=== PATIENT | male | born 1945 | race African-American/Black ===

== ENCOUNTER 2017-09-08 02:05 | Inpatient (IN) | payer MEDICARE, BC ==
[~2017-09-08] VITALS: Ht 177.8 cm; Wt 77.1 kg
[2017-09-08 03:20] LABS: BASOPHILS % 0.3 % (0.0-1.0); HEMATOCRIT 39.8 % (38.2-49.6); HEMOGLOBIN 13.7 g/dL (14.0-18.0); LYMPHOCYTES # (AUTO) 1.7 (1.0-3.2); LYMPHOCYTES % 14.1 % (18.0-39.1); MEAN CORPUSCULAR HEMOGLOBIN 32.3 pg (28-32); MEAN CORPUSCULAR HGB CONC 34.4 g/dL (31-35); MEAN CORPUSCULAR VOLUME 93.9 fL (81-99); MONOCYTES # (AUTO) 1.4 (0.2-0.8); MONOCYTES % 12.1 % (4.4-11.3); NEUTROPHILS # (AUTO) 8.6 (2.1-6.9); NEUTROPHILS % 73.1 % (38.7-80.0); PLATELET COUNT 210 x10e3/uL (140-360); RED BLOOD COUNT 4.24 x10e6/uL (4.3-5.7); RED CELL DISTRIBUTION WIDTH 14.3 % (11.7-14.4)
[2017-09-08 03:21] LABS: CLARITY,URINE CLEAR (CLEAR); COLOR,URINE YELLOW (YELLOW)
[2017-09-08 03:22] LABS: BILIRUBIN,URINE NEGATIVE (NEGATIVE); KETONES,URINE TRACE (NEGATIVE); LEUKOCYTE ESTERASE ,URINE 1+ (NEGATIVE); NITRITE,URINE NEGATIVE (NEGATIVE); PROTEIN,URINE DIPSTICK TRACE (NEGATIVE); URINE UROBILINOGEN 4 mg/dL (0.2 - 1)
[2017-09-08 03:23] LABS: BACTERIA,URINE FEW /HPF; EPITHELIAL CELLS,URINE RARE /LPF; RBC,URINE 0-5 /HPF (0-5)
[2017-09-08 03:26] LABS: INR 1.36; PROTHROMBIN TIME 15.8 seconds (11.9-14.5)
[2017-09-08 04:08] LABS: ALANINE AMINOTRANSFERASE 28 IU/L (0-55); ALBUMIN 3.3 g/dL (3.5-5.0); ALBUMIN/GLOBULIN RATIO 0.9 (0.8-2.0); ALKALINE PHOSPHATASE 102 IU/L (40-150); AMYLASE 95 U/L (25-125); ANION GAP 13.1 mmol/L (8-16); BLOOD UREA NITROGEN 9 mg/dL (7-26); BUN/CREATININE RATIO 9 (6-25); CALCIUM 8.8 mg/dL (8.4-10.2); CARBON DIOXIDE 22 mmol/L (22-29); CHLORIDE 103 mmol/L (98-107); CREATININE, SERUM 1.04 mg/dL (0.72-1.25); EST GLOMERULAR FILTRATION RATE > 60 ML/MIN (60-); GLUCOSE 118 mg/dL (74-118); LIPASE 16 U/L (8-78); POTASSIUM 4.1 mmol/L (3.5-5.1); SODIUM 134 mmol/L (136-145)
[2017-09-08] MEDS ORDERED: IOPAMIDOL 370 MG/ML 200 ML INFUS..BTL INJ ONE (04:20)
[2017-09-08] MEDS ORDERED: SODIUM CHLORIDE 0.9% 50ML 50 ML ONE (04:20)
[2017-09-08] MEDS ORDERED: ONDANSETRON HCL INJ 2 MG/ML VIAL IV STA (05:18)
[2017-09-08] MEDS ORDERED: PIPER-TAZ 3.375 GM 50 ML IV STA (05:18)
[2017-09-08] MEDS ORDERED: MORPHINE SULFATE 2 MG/ML SYR IV STA (05:18)
--- NOTE | 2017-09-08 05:22 | Diagnostic Imaging Report ---
EXAM: CT ABDOMEN/PELVIS W DATE: 09/08/2017 2:16 AM INDICATION: Right lower quadrant pain COMPARISON: None TECHNIQUE: The abdomen and pelvis were scanned using a multidetector helical scanner. Coronal and sagittal reformations were obtained. Routine protocol performed. IV Contrast: 100 ml Isovue 300/370 FINDINGS: LOWER THORAX: Cardiomegaly. No consolidation. LIVER/BILIARY: Slightly heterogeneous, which may be related to phase of enhancement and passive hepatic congestion. GALLBLADDER: Unremarkable SPLEEN: Unremarkable PANCREAS: Unremarkable ADRENALS: No nodules KIDNEYS: 4.1 cm left renal cyst and several too small to characterize bilateral renal hypodensities. No hydronephrosis. GI TRACT: Dilated appendix measuring up to 1.9 cm with mucosal hyperemia and surrounding inflammatory changes. Moderate focal thickening of the cecum/cecal base, which appears low density, likely reactive edema. VESSELS: Unremarkable PERITONEUM/RETROPERITONEUM: Mild perihepatic and right paracolic gutter free fluid. LYMPH NODES: No lymphadenopathy REPRODUCTIVE ORGANS/BLADDER: Unremarkable SOFT TISSUES: Unremarkable BONES: Multilevel degenerative changes IMPRESSION: Acute appendicitis without evidence of rupture. Moderate associated cecal edema. Discussed with Physician: KALEY GLEZ MD at 5:15 AM on 09/08/2017. Signed by: Dr Jessica Valdivia MD on 09/08/2017 5:18 AM
[2017-09-08] MEDS ORDERED: CARVEDILOL3.125 MG PO (05:42)
[2017-09-08] MEDS ORDERED: LASIX20 MG PO (05:42)
[2017-09-08] MEDS ORDERED: AMIODARONE HCL200 MG PO (05:42)
[2017-09-08] MEDS ORDERED: PRILOSEC OTC20 MG PO (05:42)
[2017-09-08] MEDS ORDERED: ELIQUIS PO (05:42)
[2017-09-08] MEDS ORDERED: LISINOPRIL2.5 MG PO (05:42)
[2017-09-08] MEDS ORDERED: METOPROLOL TARTRATE INJ 1 MG/ML VIAL IV PRN (05:45)
[2017-09-08] MEDS ORDERED: PIPER-TAZ 3.375 GM / NS 50ML IV SCH (06:00)
[2017-09-08 08:14] VITALS: BP 96/62
[2017-09-08] MEDS: CARVEDILOL 3.125 MG TAB PO SCH ×2 (09:00→17:00)
--- NOTE | 2017-09-08 09:17 | History and Physical ---
Patient of Dr. Sathya St. A charming but unfortunate 72-year-old gentleman admitted with 2 days of intermittent abdominal pain, but more severe and constant starting yesterday. History of hypertension, history of paroxysmal atrial fibrillation, history of degenerative joint disease. He has had cervical spine fusion. FAMILY HISTORY: Positive for longevity. Nonsmoker. Born in [facility]. 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 MEDICATIONS: Included amiodarone, Coreg, Lasix, lisinopril, Prilosec, and Eliquis. He was planning to see Dr. Mcdonnell because of his edema. Denies respiratory problems. Denies problems. Denies depression. History of atrial fibrillation for 3 months and hypertension. Right lower quadrant pain, peripheral edema. He has been off his Eliquis for 24 hours. PHYSICAL EXAMINATION GENERAL: He is a well-developed, thin black male in no acute distress. Looking his stated age. VITALS: Temperature 98.1, pulse 81, blood pressure 96/60. HEENT: Head is normocephalic and atraumatic. Scar in neck. LUNGS: Clear. HEART: Regular rhythm. ABDOMEN: Tender in the right lower quadrant. EXTREMITIES: Edematous. IMPRESSION 1. Congestive heart failure. 2. Paroxysmal atrial fibrillation. 3. Appendicitis. 4. Hypertension. 5. Degenerative joint disease. PLAN: Cardiology clearance. Surgical intervention. The patient seems a reasonable surgical candidate. Thank you for this kind referral. Job#: [id number] HOLLI
--- NOTE | 2017-09-08 10:36 | History and Physical ---
ADDENDUM TO HISTORY AND PHYSICAL The patient does have a history of diastolic congestive heart failure, paroxysmal atrial fibrillation and atrial flutter. He was cardioverted in April of this year. He has a history of chronic kidney disease. He has had progressive heart failure. In March, his left ventricular ejection fraction was 40%. He was felt to have chronic hypertensive cardiomyopathy and biatrial enlargement. He was cardioverted. He has a history of amaurosis fugax, history of hypertension, and gastroesophageal reflux according to old record. Ejection fraction in 2016 was apparently 65%. Job#: [id number]
[2017-09-08] MEDS: SODIUM CHLORIDE 0.9% 1000ML 1,000 ML IV SCH ×3 (10:38→21:29)
[2017-09-08] MEDS: AMIODARONE HCL 200 MG TAB PO SCH (10:38)
--- NOTE | 2017-09-08 10:53 | Consultation ---
DATE OF CONSULTATION: September 08, 2017 REASON FOR CONSULTATION: History of A-flutter. HPI: This is a 72-year-old male with a history of atrial fibrillation, status post cardioversion in April [address] Patel, hypertension, cervical stenosis, status post cervical surgery, lumbar stenosis, and reflux. Patient presents with a 3-day history of abdominal discomfort, right lower quadrant that started about Thursday. Reports some nausea. No vomitus. Did try home remedies, teas, and whatnot. However, on Thursday morning the pain again increased in severity after seeing his doctor in which he came PMC for further evaluation. On imaging, the patient was noted with acute appendicitis. General surgery has been consulted. Of note, last dosage of Eliquis was Thursday. The patient denies any chest pain, shortness of breath, any orthopnea, PND. Does have some lower extremity edema, greater on the right than left. EKG was done showing the patient in sinus rhythm. PAST MEDICAL HISTORY: Hypertension, A-flutter, status post cardioversion in April [address] Patel, cervical and lumbar stenosis, LV dysfunction, reflux. SURGICAL HISTORY: Neck surgery and also he had a FRANCIS in April [address] Patel. Was cardioverted. FAMILY HISTORY: Mother at age 97 apparently from old age. Father at age 77, questionable heart failure. SOCIAL HISTORY: He is . 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 Denies any tobacco use. Occasional alcohol use reported. HOME MEDICATIONS 1. Eliquis 5 mg twice a day. 2. Coreg 3.125 mg twice a day. 3. Amiodarone 200 mg twice a day. 4. Lasix 20 mg once a day. 5. Lisinopril 2.5 mg once a day. 6. Omeprazole 20 mg twice a day. ALLERGIES: NO KNOWN ALLERGIES. REVIEW OF SYSTEMS GENERAL: Denies any weight gain or weight changes, any fevers, chills, night sweats. SKIN: Moist. No rashes or bruises. HEENT: Positive for nausea. One episode of vomiting this morning. Does wear corrective lenses. Denies any tinnitus, vertigo. Positive for hearing loss. Denies any earaches. Denies any stuffiness, sneezing, allergies, epistaxis, sore throat. Positive for stiff neck. No neck pain. CARDIAC: Denies any chest pain, any palpitations. Positive for dyspnea on exertion. Denies any orthopnea, PND. Does have some lower extremity edema, right greater than left, which he says is chronic. RESPIRATORY: Positive for shortness of breath on exertion. Denies any coughing or wheezing, any hemoptysis. GI: Good appetite. Positive for nausea. One episode of vomitus this morning. Denies any diarrhea or constipation, melena, hematochezia. Positive for abdominal pain, right lower quadrant. URINARY: Denies any hematuria. Positive for nocturia, frequency and urgency. VASCULAR: Positive for lower extremity edema, right greater than left, which he states is chronic. MUSCULOSKELETAL: Positive for generalized joint pains and lower back pains. NEUROLOGICAL: Positive for lower extremity numbness. The patient with known lumbar stenosis. He is seeing a spinal specialist. Denies any paralysis, fainting, blackouts, seizures. HEMATOLOGY: Denies any anemia, any bleeding, any easy bruising. ENDOCRINE: Denies any heat or cold intolerance, any polyuria, polydipsia, polyphagia. PHYSICAL EXAMINATION VITAL SIGNS: Height 70 inches, weight 170 pounds, temperature 98.8, pulse 89, respiratory rate 18, blood pressure 123/80, pulse ox 99% on room air. GENERAL: Appears stated age. A reliable informant. No acute distress. SKIN: Dry. No rashes. No bruises noted. HEENT: Normocephalic. Pupils equal and reactive. Extraocular motor intact. Trachea midline. oral mucosa is pink. No JVD. No thyromegaly noted. No carotid bruits noted. HEART: Regular rate and rhythm. Soft systolic murmur heard on the right upper sternal border. PMI is in the 5th intercostal space. LUNGS: Bilateral breath sounds. Clear to auscultation. ABDOMEN: Soft and tender in the right lower quadrant to palpation. No guarding. MUSCULOSKELETAL: Good muscle strength throughout. There is some right lower swelling. VASCULAR: Plus 2 with bilateral radial pulses, +1 DP and PT pulses bilaterally. NEUROLOGICAL: Cranial nerves II-XII seem intact. LABS: White count 11.8, hemoglobin 13, hematocrit 39, and platelets 210,000. Chemistry: Sodium 134, potassium 4.1, chloride 103, BUN 9, creatinine 1.04, HCO2 32, ALT 28, alkaline phos 102, lipase 116, amylase 95. CT of the abdomen is showing acute appendicitis without evidence of rupture. Moderate associated cecal edema. EKG is showing normal sinus rhythm. No acute S/T changes suggestive of an acute event. Of note, the patient had an echo done on August 02, 2017, at [facility] read by Dr. Patel. EF reported at 40% to 45% and severe LVH. ASSESSMENT AND PLAN 1. Acute appendicitis. 2. Hypertension. 3. Left ventricular dysfunction. 4. Paroxysmal atrial flutter: Status post cardioversion and currently in sinus rhythm. 5. Reflux. PLAN: Patient presents with right lower quadrant abdominal pain noted with acute appendicitis on CT. General surgery has been consulted. The patient has been off Eliquis therapy since yesterday morning around 8 in the morning. Currently, the patient is in sinus rhythm on telemetry. Continue telemetry for now. Continue beta bryan for rate control. The patient is taking amiodarone and continue amiodarone for rhythm control. Echo has been ordered by primary team. Will be read by cardiology attending. The patient is cleared for appendectomy if recommended by general surgery. However, risks are not zero from a cardiac standpoint. Thank you very much for this consult. Will continue to monitor the patient and adjust cardiac therapy as the course dictates. DICTATED BY RYAN WILDER NP SEEN AND EXAMINED AGREE WITH NOTE Job#: [id number] HOLLI BALDWIN
[2017-09-08 10:56] VITALS: BP 96/62
--- NOTE | 2017-09-08 11:48 | Diagnostic Imaging Report ---
PROCEDURE: Frontal and lateral views of the chest. COMPARISON: [facility], CT, CT ABDOMEN/PELVIS W, 09/08/2017, 4:19. INDICATIONS: RIGHT SIDE LOWER ABDOMEN PAIN FINDINGS: Lines/tubes: None. Lungs: The lungs are well inflated. There is no evidence of pneumonia or pulmonary edema. Pleura: There is no pleural effusion or pneumothorax. Heart and mediastinum: Stable moderate cardiomegaly. Central vascular congestion and mild perihilar interstitial edema Bones: No acute bony abnormality. IMPRESSION: 1. Stable moderate cardiomegaly. Central vascular congestion and mild perihilar interstitial edema Mariano Min M.D. Dictated by: Mariano Min M.D. on 09/08/2017 at 11:51 Electronically approved by: Mariano Min M.D. on 09/08/2017 at 11:51
[2017-09-08 12:58] VITALS: BP 108/69
--- NOTE | 2017-09-08 13:30 | Consultation ---
DATE OF CONSULTATION: September 08, 2017 SURGERY CONSULTATION REFERRING PHYSICIAN: Dr. Patiño, Dr. Red Rogers. HISTORY OF PRESENT ILLNESS: The patient is a 72-year-old male admitted to the hospital with complaints of abdominal pain. He said he had intermittent right lower quadrant abdominal pain a few days ago but it became constant yesterday. He came to the emergency room where evaluation has revealed findings suggestive of acute appendicitis. Patient is on Eliquis. However, he last took the Eliquis yesterday. He denies nausea or vomiting. PAST MEDICAL HISTORY: Significant for cardiomyopathy, congestive heart failure, hypertension. MEDICATIONS: At home were amiodarone, carvedilol, Lasix, lisinopril, omeprazole and Eliquis. ALLERGIES: HE HAS NO KNOWN ALLERGIES. PAST SURGICAL HISTORY: He has had a previous neck surgery. FAMILY HISTORY: Noncontributory. SOCIAL HISTORY: The patient does not smoke cigarettes or drink alcohol. REVIEW OF SYSTEMS: Is as stated above, otherwise was negative. PHYSICAL EXAMINATION: GENERAL: The patient is awake and alert. VITAL SIGNS: Normal. He is afebrile. HEENT: Reveals no scleral icterus. NECK: Has no masses. LUNGS: Equal breath sounds are clear bilaterally. CARDIAC: Regular rhythm. ABDOMEN: Tender in the right lower quadrant. Signs of peritonitis localized to the right lower quadrant. There is no mass. EXTREMITIES: Have no edema. LABORATORY DATA: White blood cell count 11.81. Hemoglobin 13. Hematocrit 39.8. Chemistries are essentially normal. ASSESSMENT: A 72-year-old male with acute appendicitis and also multiple associated medical problems, particularly congestive heart failure, and is on Eliquis. Plan to hold the Eliquis today, tentatively plan surgery for tomorrow. The procedure was explained to the patient. He is to be seen in consultation by Cardiology. Thank you for asking me to see Mr. Barroso. Job#: [id number] EV
[2017-09-08] MEDS: PIPER-TAZ 3.375 GM 50 ML IV SCH ×2 (13:55→21:29)
[2017-09-08] MEDS ORDERED: DEXAMETHASONE SOD PHOS INJ 4 MG/ML VIAL ONE (14:06)
[2017-09-08] MEDS ORDERED: LIDOCAINE HCL 2% LOCAL INJ 5 ML SDV VIAL INJ ONE (14:06)
[2017-09-08] MEDS ORDERED: PROPOFOL IV EMULSION 10 MG/ML 20 ML VIAL ONE (14:06)
[2017-09-08] MEDS ORDERED: SEVOFLURANE INHAL SOLN 250 ML PEN BTL ONE (14:06)
[2017-09-08] MEDS ORDERED: ONDANSETRON HCL INJ 2 MG/ML VIAL ONE (14:06)
[2017-09-08] MEDS ORDERED: NEOSTIGMINE 5 MG/5ML SYR ONE (14:06)
[2017-09-08] MEDS ORDERED: ROCURONIUM BROMIDE 10 MG/ML 5ML VIAL ONE (14:06)
[2017-09-08] MEDS ORDERED: GLYCOPYRROLATE INJ 1MG/ 5 ML SYR ONE (14:06)
[2017-09-08 16:40] VITALS: BP 93/62
[2017-09-08] MEDS: MORPHINE SULFATE 2 MG/ML SYR IV PRN (18:10)
[2017-09-08] MEDS: ONDANSETRON HCL INJ 2 MG/ML VIAL IV PRN (18:10)
[2017-09-08] MEDS ORDERED: SIMETHICONE 80 MG CHEW PO PRN (20:00)
[2017-09-08 20:07] VITALS: BP 149/92
[2017-09-08 21:00] VITALS: BP 149/92
[2017-09-09] VITALS (9 sets, daily range): BP systolic 95–118; BP diastolic 62–78
[2017-09-09] MEDS: ONDANSETRON HCL INJ 2 MG/ML VIAL IV PRN (00:31)
[2017-09-09] MEDS: MORPHINE SULFATE 2 MG/ML SYR IV PRN (00:31)
[2017-09-09] MEDS: PIPER-TAZ 3.375 GM 50 ML IV SCH ×3 (05:50→20:55)
[2017-09-09] MEDS: SODIUM CHLORIDE 0.9% 1000ML 1,000 ML IV SCH ×3 (06:13→17:05)
[2017-09-09] MEDS ORDERED: BUPIVACAINE HCL 0.5% INJ 30 ML VIAL INJ ONE (06:14)
[2017-09-09 06:45] LABS: BASOPHILS % 0.2 % (0.0-1.0); HEMOGLOBIN 13.7 g/dL (14.0-18.0); LYMPHOCYTES # (AUTO) 2.1 (1.0-3.2); LYMPHOCYTES % 16.4 % (18.0-39.1); MEAN CORPUSCULAR HEMOGLOBIN 31.8 pg (28-32); MEAN CORPUSCULAR HGB CONC 34.3 g/dL (31-35); MEAN CORPUSCULAR VOLUME 92.8 fL (81-99); MONOCYTES # (AUTO) 0.8 (0.2-0.8); PLATELET COUNT 208 x10e3/uL (140-360); RED BLOOD COUNT 4.31 x10e6/uL (4.3-5.7); RED CELL DISTRIBUTION WIDTH 13.6 % (11.7-14.4)
[2017-09-09 07:00] LABS: INR 1.53; PROTHROMBIN TIME 17.3 seconds (11.9-14.5)
[2017-09-09 07:01] LABS: PARTIAL THROMBOPLASTIN TIME 32.1 seconds (23.8-35.5)
[2017-09-09 07:24] LABS: ALANINE AMINOTRANSFERASE 25 IU/L (0-55); ALBUMIN 3.3 g/dL (3.5-5.0); ALBUMIN/GLOBULIN RATIO 0.8 (0.8-2.0); ALKALINE PHOSPHATASE 87 IU/L (40-150); BLOOD UREA NITROGEN 10 mg/dL (7-26); BUN/CREATININE RATIO 8 (6-25); CALCIUM 9.1 mg/dL (8.4-10.2); CARBON DIOXIDE 23 mmol/L (22-29); CHLORIDE 105 mmol/L (98-107); CREATININE, SERUM 1.19 mg/dL (0.72-1.25); EST GLOMERULAR FILTRATION RATE > 60 ML/MIN (60-); GLUCOSE 92 mg/dL (74-118); SODIUM 139 mmol/L (136-145)
[2017-09-09 07:34] LABS: CHOL/HDL RATIO 2.3 (3.9-4.7)
[2017-09-09] MEDS ORDERED: MORPHINE SULFATE INJ 4 MG/ML INJ IV PRN (07:45)
[2017-09-09] MEDS ORDERED: HYDROCODONE/APAP 5MG-325MG TAB PO PRN (07:45)
[2017-09-09] MEDS ORDERED: ONDANSETRON HCL INJ 2 MG/ML VIAL IV PRN (07:45)
[2017-09-09] MEDS ORDERED: MORPHINE SULFATE 2 MG/ML SYR IV PRN (08:00)
[2017-09-09 08:23] LABS: BAND NEUTROPHILS % (MANUAL) 4 %; LYMPHOCYTES % (MANUAL) 11 % (19-48); MONOCYTES % (MANUAL) 6 % (3.4-9.0); NEUTROPHILS % (MANUAL) 79 % (40-74)
[2017-09-09 08:24] LABS: ANISOCYTOSIS SLIGHT; PLATELET ESTIMATE ADEQUATE; PLATELET MORPHOLOGY COMMENT NORMAL; RBC MORPHOLOGY COMMENT NORMAL
--- NOTE | 2017-09-09 08:25 | Operative Report ---
DATE OF PROCEDURE: September 09, 2017 PREOPERATIVE DIAGNOSIS: Acute appendicitis. POSTOPERATIVE DIAGNOSIS: Acute appendicitis. PROCEDURES PERFORMED: Diagnostic laparoscopy, laparoscopic appendectomy. SPRAGGER: None. ANESTHESIA: General. INDICATIONS AND FINDINGS: Patient is a 72-year-old male who presented with complaints of abdominal pain localized in the right lower quadrant. Workup revealed acute appendicitis. He has been on Eliquis and has significant cardiac disease. He had a preoperative cardiac clearance. At surgery, the patient was found to have an acutely inflamed appendix. TECHNIQUE: After adequate general endotracheal anesthesia, with the patient in the supine position, the abdomen was prepped and draped in a sterile fashion with [place] solution. Skin in the umbilicus was infiltrated with 0.5% Marcaine. Incision was made in the umbilicus. Abdominal wall was elevated, and a Veress needle was introduced. Pneumoperitoneum was then created. A 10-mm trocar and cannula were then passed through the umbilical wound. Laparoscopic camera was introduced. Initial laparoscopy revealed an acutely inflamed appendix with some inflammatory changes around it and in the lower abdomen. A 12-mm trocar and cannula were placed suprapubically and a 5-mm trocar and cannula placed in the right upper quadrant. These were placed under direct vision. There was adherent omentum over an acutely inflamed appendix. This was bluntly dissected away from the appendix. The cecum was elevated. A window was created between the base of the appendix and the mesoappendix. Base of the appendix was divided close to the cecum with Endo LOR stapler. Mesoappendix also divided with Endo LOR stapler. Some bleeding from the mesoappendix was controlled with Hemoclips and hemostasis achieved. The appendix was placed into an Endo pouch and brought out through the suprapubic cannula. Care was taken that it did not touch the abdominal wall. The area of the appendectomy was irrigated with saline once again. All fluid was aspirated and inspected for hemostasis, which was seen to be adequate. It was irrigated once again with saline. All fluid aspirated from above the liver, from the right side of the abdomen and from the pelvis and inspected for hemostasis, which was seen to be adequate. Instruments and cannulas were then removed. Pneumoperitoneum was evacuated. Wounds were then closed. Fascia in the umbilical and suprapubic wounds closed with #0 Vicryl. Skin to all wounds closed with vonnie. Sterile dressings applied to each wound. Patient tolerated the procedure well. Estimated blood loss was 20 mL. There were no complications. All counts were correct. Patient was taken to the recovery room in satisfactory condition. Job#: [id number]
[2017-09-09] MEDS: CARVEDILOL 3.125 MG TAB PO SCH ×2 (09:00→17:00)
[2017-09-09] MEDS: AMIODARONE HCL 200 MG TAB PO SCH (10:00)
[2017-09-09] MEDS ORDERED: MIDAZOLAM HCL 2 MG/2 ML VIAL ONE (17:37)
[2017-09-10] VITALS (7 sets, daily range): BP systolic 102–130; BP diastolic 75–86
[2017-09-10] MEDS: PIPER-TAZ 3.375 GM 50 ML IV SCH ×3 (05:23→22:00)
[2017-09-10 06:24] LABS: BASOPHILS % 0.1 % (0.0-1.0); HEMATOCRIT 34.6 % (38.2-49.6); LYMPHOCYTES % 8.8 % (18.0-39.1); MEAN CORPUSCULAR HEMOGLOBIN 31.3 pg (28-32); MEAN CORPUSCULAR HGB CONC 34.7 g/dL (31-35); MEAN CORPUSCULAR VOLUME 90.3 fL (81-99); MONOCYTES # (AUTO) 0.6 (0.2-0.8); MONOCYTES % 5.9 % (4.4-11.3); NEUTROPHILS # (AUTO) 9.2 (2.1-6.9); NEUTROPHILS % 84.5 % (38.7-80.0); PLATELET COUNT 180 x10e3/uL (140-360); RED BLOOD COUNT 3.83 x10e6/uL (4.3-5.7); RED CELL DISTRIBUTION WIDTH 13.3 % (11.7-14.4)
[2017-09-10 06:44] LABS: ANION GAP 11.2 mmol/L (8-16); BLOOD UREA NITROGEN 15 mg/dL (7-26); BUN/CREATININE RATIO 14 (6-25); CALCIUM 8.7 mg/dL (8.4-10.2); CARBON DIOXIDE 24 mmol/L (22-29); CHLORIDE 106 mmol/L (98-107); CREATININE, SERUM 1.09 mg/dL (0.72-1.25); EST GLOMERULAR FILTRATION RATE > 60 ML/MIN (60-); GLUCOSE 118 mg/dL (74-118); POTASSIUM 4.2 mmol/L (3.5-5.1); SODIUM 137 mmol/L (136-145)
[2017-09-10] MEDS: CARVEDILOL 3.125 MG TAB PO SCH ×2 (08:16→16:27)
[2017-09-10] MEDS ORDERED: AMIODARONE HCL 200 MG TAB PO SCH (09:00)
[2017-09-10] MEDS ORDERED: SODIUM CHLORIDE 0.9% 250ML 250 ML ONE (13:02)
[2017-09-11] VITALS: BP 97/71
[2017-09-11 03:50] VITALS: BP 100/72
[2017-09-11] MEDS: PIPER-TAZ 3.375 GM 50 ML IV SCH (06:15)
[2017-09-11 07:30] VITALS: BP 112/76
[2017-09-11 08:00] VITALS: BP 112/79
[2017-09-11] MEDS ORDERED: AMIODARONE HCL 200 MG TAB PO SCH (09:00)
[2017-09-11] MEDS: CARVEDILOL 3.125 MG TAB PO SCH (09:07)
[2017-09-11 12:00] VITALS: BP 105/73
[2017-09-11] MEDS ORDERED: FUROSEMIDE INJ 10 MG/ML 2 ML VIAL IV ONE (12:15)
--- NOTE | 2017-09-11 15:53 | Discharge Summary ---
FINAL DIAGNOSES 1. Hypertension. 2. Atrial fibrillation. 3. Acute appendicitis. 4. Degenerative joint disease. ADMISSION HISTORY AND HOSPITAL COURSE: Mr. Barroso is a 72-year-old male who was admitted with abdominal pain. Patient was found to have acute appendicitis. Cardiology clearance was done. Patient underwent surgery, did well with surgery. Surgery and Cardiology has cleared the patient for discharge. He will be discharged home to follow up with his primary care physician. MARILYN MONTANO MD Job#: [id number] DG
[2017-09-11 16:00] VITALS: BP 110/81
[2017-09-11] MEDS ORDERED: FUROSEMIDE 20 MG TAB PO SCH (16:00)
[2017-09-11] MEDS ORDERED: LISINOPRIL 2.5 MG TAB PO SCH (17:00)
== END 2017-09-11 18:18 | disposition home or self-care (01) | DRG 342 ==
LOC: ER 02:05 → ERHOLD 06:01 → MED/SURG2 06:32
PROVIDERS: ADMIT Internal Medicine; ATTEND Internal Medicine
PROC: 0DTJ4ZZ Resection of Appendix, Percutaneous Endoscopic Approach (ICD-10-PCS; principal; 2017-09-09 07:00)
DX: K35.80 Unspecified acute appendicitis (principal); I13.0 Hypertensive heart and chronic kidney disease with heart failure and stage 1 through stage 4 chronic kidney disease, or unspecified chronic kidney disease; I50.32 Chronic diastolic (congestive) heart failure; I48.92 Unspecified atrial flutter; G45.3 Amaurosis fugax; I48.0 Paroxysmal atrial fibrillation; N18.9 Chronic kidney disease, unspecified; Z79.01 Long term (current) use of anticoagulants; M19.90 Unspecified osteoarthritis, unspecified site; M47.816 Spondylosis without myelopathy or radiculopathy, lumbar region; M47.812 Spondylosis without myelopathy or radiculopathy, cervical region; K21.9 Gastro-esophageal reflux disease without esophagitis
CPT/HCPCS: 36415; 71046; 74177; 80048; 80053; 80061; 81001; 82150; 83690; 85025; 85610; 85730; 88304; 93005; 93306; 99284; J1100; J1940; J2001; J2250; J2270; J2405; J2543; J7030; J7050; Q9967